=== PATIENT | female | born 1990 | race Two or more races ===

== ENCOUNTER 2023-07-30 16:41 | Emergency (ER) | payer SELFPAY ==
[~2023-07-30] VITALS: Ht 157.5 cm; Wt 41.9 kg
[2023-07-30 17:29] VITALS: BP 133/97; PULSE 109; RESP 20; TEMP 98.5; O2SAT 100
[2023-07-30] MEDS ORDERED: LIDOCAINE 1% HCL (LOCAL ANESTH.) INJ 20ML MDV IJ ONE (17:45)
[2023-07-30] MEDS ORDERED: TETANUS-DIPTH-ACEL PERTUSSIS 0.5ML SYR Tdap IM ONE (17:45)
[2023-07-30] MEDS ORDERED: NAPR-746 PO (17:55)
[2023-07-30] MEDS ORDERED: AMOX500T86 PO (17:55)
== END 2023-07-30 17:56 | disposition home or self-care (01) ==
LOC: ER 16:41
DX: S91.011A Laceration without foreign body, right ankle, initial encounter (principal); W54.0XXA Bitten by dog, initial encounter; Y93.89 Activity, other specified; Y92.89 Other specified places as the place of occurrence of the external cause; Y99.8 Other external cause status
CPT/HCPCS: 12002; 90471; 90715; 99283; J2001

== ENCOUNTER 2023-09-17 20:21 | Emergency (ER) | payer SELFPAY ==
[~2023-09-17] VITALS: Ht 157.5 cm; Wt 40.4 kg
[~2023-09-17 20:21] MED LIST: AMOX500T86 PO; NAPR-746 PO
[2023-09-17 21:06] LABS: Urine WBC None Seen /hpf (0 - 5)
[2023-09-17 21:27] LABS: Urine Bacteria NONE SEEN /hpf (None Seen); Urine Blood 3+ /uL (Negative); Urine Clarity CLOUDY (Clear); Urine Color Red (Yellow); Urine Protein, UAD 2+ (Negative); Urine Urobilinogen Normal (Negative)
[2023-09-17 21:30] LABS: Urine Specific Gravity 1.015 (1.001-1.035)
[2023-09-17 22:24] LABS: Basophils # (auto) 0 10 ^3/uL (0-0.2); Basophils % (auto) 0.6 % (0.0-2.0); Eosinophils # (auto) 0.2 10 ^3/uL (0-0.8); Eosinophils % (auto) 5.2 % (0.0-7.0); Hematocrit 40.1 % (36.0-46.0); Hemoglobin 13.5 g/dL (12.2-16.2); Lymphocytes % (auto) 24.7 % (10.0-50.0); Mean Corpuscular Hemoglobin 30.9 pg (28.0-32.0); Mean Corpuscular Hgb Conc. 33.7 g/dL (32.0-36.0); Mean Corpuscular Volume 91.8 fL (80.0-100.0); Monocytes # (auto) 0.5 10 ^3/uL (0-1.3); Monocytes % (auto) 11.7 % (0.0-12.0); Neutrophils # (auto) 2.4 10 ^3/uL (1.6-8.6); Neutrophils % (auto) 57.8 % (37.0-80.0); Nucleated Red Blood Cells % 0.2 %; Red Blood Cells 4.37 10^6/uL (4.0-5.20); Red Cell Distribution Width 14.3 % (11.8-14.3); White Blood Cell 4.2 10^3/uL (4.4-10.8)
[2023-09-17 22:43] LABS: Alanine Aminotransferase 16 U/L (7-40); Albumin 4.2 g/dL (3.2-4.8); Alkaline Phosphatase 57 U/L (46-116); Anion Gap 4 (5-15); Aspartate Aminotransferase 18 U/L (13-40); BUN/Creatinine Ratio 16.7 (10.0-20.0); Bilirubin, Total 0.7 mg/dL (0.2-1.0); Blood Urea Nitrogen 11 mg/dL (9-23); Calcium 8.6 mg/dL (8.7-10.4); Carbon Dioxide 25 mmol/L (20-30); Chloride 109 mmol/L (98-107); Glucose 75 mg/dL (74-106); Potassium 4.6 mmol/L (3.5-5.1); Sodium 138 mmol/L (136-145); Total Protein 7.1 g/dL (5.7-8.2)
[2023-09-17] MEDS ORDERED: MEDR5TAB28 PO (23:16)
[2023-09-17 23:34] VITALS: BP 128/92; TEMP 97.8
[2023-09-17 23:37] VITALS: PULSE 98; RESP 18; O2SAT 98
== END 2023-09-17 20:40 | disposition home or self-care (01) ==
LOC: ER 20:21
DX: D25.9 Leiomyoma of uterus, unspecified (principal); R10.2 Pelvic and perineal pain; N93.9 Abnormal uterine and vaginal bleeding, unspecified; F41.9 Anxiety disorder, unspecified; Z79.899 Other long term (current) drug therapy
CPT/HCPCS: 36415; 76856; 80053; 81001; 81025; 84702; 85025; 86850; 86900; 86901